=== PATIENT | male | born 1955 | race African-American/Black ===

== ENCOUNTER 2020-06-27 19:12 | Emergency (ER) | payer MEDICARE, MEDICAID ==
[2020-06-27] MEDS ORDERED: Silver Sulfadiazine 50 GM TUBE ONE (19:32)
== END 2020-06-27 20:27 | disposition home or self-care (01) ==
LOC: ERS 19:12
DX: T25.212A Burn of second degree of left ankle, initial encounter (principal); T31.0 Burns involving less than 10% of body surface; I10 Essential (primary) hypertension; Z79.899 Other long term (current) drug therapy; Y26.XXXA Exposure to smoke, fire and flames, undetermined intent, initial encounter; Y92.007 Garden or yard of unspecified non-institutional (private) residence as the place of occurrence of the external cause
CPT/HCPCS: 16020; G0390